=== PATIENT | male | born 1985 | race African-American/Black ===

== ENCOUNTER 2017-01-12 02:51 | Emergency (ER) | payer SELFPAY ==
[2017-01-12 03:53] LABS: APPEARANCE,URINE CLEAR; BILIRUBIN,URINE NEGATIVE (NEGATIVE); GLUCOSE, URINE NEGATIVE (NEGATIVE); KETONES,URINE NEGATIVE (NEGATIVE); LEUKOCYTE ESTERASE,URINE NEGATIVE (NEGATIVE); NITRITE,URINE NEGATIVE (NEGATIVE); PROTEIN,URINE NEGATIVE (NEGATIVE); URINE SPECIFIC GRAVITY 1.026
--- NOTE | 2017-01-12 04:00 | ER Document Report ---
ED Medical Screen (RME) - General Chief Complaint: STD Exposure Stated Complaint: POSSIBLE STD EXPOSURE Time Seen by Provider: 01/12/17 03:31 Mode of Arrival: Ambulatory Information source: Patient Notes: 31-year-old male presents to ED to be checked for Trichomonas. He states that his girlfriend called in from [place] and stated that she had trichomonas and had it for about a year. Patient states patient states he has no symptoms at this time. He came in a year ago and was tested and was treated and he was negative for trichomonas. TRAVEL OUTSIDE OF THE [place] IN LAST 30 DAYS: No Past Medical History Renal/ Medical History: Denies: Hx Peritoneal Dialysis Physical Exam - Vital signs Vitals: Temp Pulse Resp BP Pulse Ox 98.2 F 62 20 138/83 H 99 01/12/17 02:51 01/12/17 02:51 01/12/17 02:51 01/12/17 02:51 01/12/17 02:51 Course - Vital Signs Vital signs: Temp Pulse Resp BP Pulse Ox 98.2 F 62 20 138/83 H 99 01/12/17 02:51 01/12/17 02:51 01/12/17 02:51 01/12/17 02:51 01/12/17 02:51 - Laboratory Laboratory results interpreted by me: 01/12/17 03:30 Urine Urobilinogen 4.0 H Doctor's Discharge - Discharge Clinical Impression: concern for trichomonas, negative test Condition: Stable Disposition: HOME, SELF-CARE Instructions: Family Physicians / Practices Additional Instructions: You came in today to be tested for Trichomonas GC and chlamydia. The trichomonas test was negative. GC and Chlamydia takes about 2-3 hours and you decide you do not want to be treated for them as you are not having symptoms. You state that your girlfriend told you that she had trichomonas and you wanted to be tested for it and it is negative. If your GC or or Chlamydia or come back positive you will be called and you will need to come back in to be treated for those as you have refused treatment for this at this time. FOLLOW-UP CARE: If you have been referred to a physician for follow-up care, call the physician s office for an appointment as you were instructed or within the next two days. If you experience worsening or a significant change in your symptoms, notify the physician immediately or return to the Emergency Department at any time for re-evaluation. Forms: Elevated Blood Pressure, Smoking Cessation Education, Return to Work
[2017-01-12 04:05] LABS: RBC,URINE NONE SEEN /HPF; WBC,URINE NONE SEEN /HPF
--- NOTE | 2017-01-12 04:20 | ER Document Report ---
ED GI/ - General Chief Complaint: STD Exposure Stated Complaint: POSSIBLE STD EXPOSURE Time Seen by Provider: 01/12/17 03:31 Mode of Arrival: Ambulatory Information source: Patient Notes: 31-year-old male presents to ED to be tested for Trichomonas. He states that his girlfriend told that she is positive for trichomonas and that the doctor told her hip she had been positive for a year. He states he came into the emergency room about a year ago and was tested for STDs and was told that he had gonorrhea and was treated. Patient states she has no symptoms at this time. TRAVEL OUTSIDE OF THE [place] IN LAST 30 DAYS: No - HPI Patient complains to provider of: Other - None Onset: Other - No symptoms Quality of pain: No pain Pain Level: Denies Associated symptoms: None Exacerbated by: Denies Relieved by: Denies Similar symptoms previously: Yes Recently seen / treated by doctor: No Past Medical History - General Information source: Patient - Social History Smoking Status: Current Every Day Smoker Cigarette use (# per day): Yes - Half a pack a day Chew tobacco use (# tins/day): No Smoking Education Provided: Yes - Less than 2 minutes Frequency of alcohol use: None Drug Abuse: Marijuana Occupation: [employer] Lives with: Family Family History: Reviewed & Not Pertinent Patient has suicidal ideation: No Patient has homicidal ideation: No - Past Medical History Cardiac Medical History: Reports: None Pulmonary Medical History: Reports: None EENT Medical History: Reports: None Neurological Medical History: Reports: None Endocrine Medical History: Reports: None Renal/ Medical History: Reports: None Malignancy Medical History: Reports None GI Medical History: Reports: None Musculoskeltal Medical History: Reports None Skin Medical History: Reports None Psychiatric Medical History: Reports: None Traumatic Medical History: Reports: None Infectious Medical History: Reports: None Surgical Hx: Negative Review of Systems - Review of Systems Constitutional: No symptoms reported EENT: No symptoms reported Cardiovascular: No symptoms reported Respiratory: No symptoms reported Gastrointestinal: No symptoms reported Genitourinary: No symptoms reported Male Genitourinary: No symptoms reported Musculoskeletal: No symptoms reported Skin: No symptoms reported Hematologic/Lymphatic: No symptoms reported Neurological/Psychological: No symptoms reported Physical Exam - Vital signs Vitals: Temp Pulse Resp BP Pulse Ox 98.2 F 62 20 138/83 H 99 01/12/17 02:51 01/12/17 02:51 01/12/17 02:51 01/12/17 02:51 01/12/17 02:51 Interpretation: Normal - General General appearance: Appears well, Alert - HEENT Head: Normocephalic, Atraumatic Eyes: Normal Pupils: PERRL - Respiratory Respiratory status: No respiratory distress Chest status: Nontender Breath sounds: Normal Chest palpation: Normal - Cardiovascular Rhythm: Regular Heart sounds: Normal auscultation Murmur: No - Abdominal Inspection: Normal Distension: No distension Bowel sounds: Normal Tenderness: Nontender Organomegaly: No organomegaly - Back Back: Normal, Nontender - Extremities General upper extremity: Normal inspection, Nontender, Normal color, Normal ROM , Normal temperature General lower extremity: Normal inspection, Nontender, Normal color, Normal ROM , Normal temperature, Normal weight bearing. No: Joseline's sign - Neurological Neuro grossly intact: Yes Cognition: Normal Orientation: AAOx4 Ariana Coma Scale Eye Opening: Spontaneous Ariana Coma Scale Verbal: Oriented Ariana Coma Scale Motor: Obeys Commands Ariana Coma Scale Total: 15 Speech: Normal Motor strength normal: LUE, RUE, LLE, RLE Sensory: Normal - Psychological Associated symptoms: Normal affect, Normal mood - Skin Skin Temperature: Warm Skin Moisture: Dry Skin Color: Normal Course - Re-evaluation Re-evalutation: 01/12/17 04:19 Call lab and asked them to test the urine for Trichomonas. I got a call back stated that he was negative for trichomonas. Patient was informed that the urine was negative for trichomonas and he stated he did not want to be treated for GC chlamydia as he was having no symptoms at this time please call him if anything comes back positive and he will come back in to be treated. - Vital Signs Vital signs: Temp Pulse Resp BP Pulse Ox 98.2 F 62 20 138/83 H 99 01/12/17 02:51 01/12/17 02:51 01/12/17 02:51 01/12/17 02:51 01/12/17 02:51 - Laboratory Laboratory results interpreted by me: 01/12/17 03:30 Urine Urobilinogen 4.0 H Discharge - Discharge Clinical Impression: concern for trichomonas, negative test Condition: Stable Disposition: HOME, SELF-CARE Instructions: Family Physicians / Practices Additional Instructions: You came in today to be tested for Trichomonas GC and chlamydia. The trichomonas test was negative. GC and Chlamydia takes about 2-3 hours and you decide you do not want to be treated for them as you are not having symptoms. You state that your girlfriend told you that she had trichomonas and you wanted to be tested for it and it is negative. If your GC or or Chlamydia or come back positive you will be called and you will need to come back in to be treated for those as you have refused treatment for this at this time. FOLLOW-UP CARE: If you have been referred to a physician for follow-up care, call the physician s office for an appointment as you were instructed or within the next two days. If you experience worsening or a significant change in your symptoms, notify the physician immediately or return to the Emergency Department at any time for re-evaluation. Forms: Elevated Blood Pressure, Smoking Cessation Education, Return to Work
[2017-01-12 04:29] VITALS: BP 132/82
[2017-01-12 05:19] LABS: CHLAM PCR NOT DETECTED (NOT DETECT)
== END 2017-01-12 04:29 | disposition home or self-care (01) ==
LOC: ER 02:51
DX: Z20.2 Contact with and (suspected) exposure to infections with a predominantly sexual mode of transmission (principal); F17.210 Nicotine dependence, cigarettes, uncomplicated; Z71.6 Tobacco abuse counseling
CPT/HCPCS: 81001; 87491; 87591; 99283

== ENCOUNTER 2017-05-08 02:34 | Emergency (ER) | payer SELFPAY ==
--- NOTE | 2017-05-08 03:40 | ER Document Report ---
ED GI/ - General Chief Complaint: Testicular Pain Stated Complaint: PAIN INNER THIGH AREA Time Seen by Provider: 05/08/17 03:19 Notes: Patient is a 31-year-old male comes emergency department for chief complaint of testicular pain for the past 3 days, he states it is intermittent and sharp, he states he feels like it is mainly at the back of his testicles. He states he cannot feel the exact spot when palpating but it is irritating. He denies trauma, fever, rash, he states he has had only protected sex, he denies discharge, denies flank pain, denies abdominal pain. TRAVEL OUTSIDE OF THE [place] IN LAST 30 DAYS: No - Related Data Allergies/Adverse Reactions: No Known Allergies Allergy (Unverified 05/08/17 02:46) Past Medical History - General Information source: Patient - Social History Smoking Status: Never Smoker Frequency of alcohol use: None Drug Abuse: None Lives with: Family Family History: Reviewed & Not Pertinent Patient has suicidal ideation: No Patient has homicidal ideation: No - Medical History Medical History: Negative Renal/ Medical History: Denies: Hx Peritoneal Dialysis Surgical Hx: Negative - Immunizations Immunizations up to date: Yes Hx Diphtheria, Pertussis, Tetanus Vaccination: Yes Review of Systems - Review of Systems Constitutional: No symptoms reported EENT: No symptoms reported Cardiovascular: No symptoms reported Respiratory: No symptoms reported Gastrointestinal: No symptoms reported Genitourinary: See HPI Male Genitourinary: No symptoms reported Musculoskeletal: No symptoms reported Skin: No symptoms reported Hematologic/Lymphatic: No symptoms reported Neurological/Psychological: No symptoms reported Physical Exam - Vital signs Vitals: Temp Pulse Resp BP Pulse Ox 98.1 F 79 16 137/86 H 99 05/08/17 02:39 05/08/17 02:39 05/08/17 02:39 05/08/17 02:39 05/08/17 02:39 Interpretation: Normal - General General appearance: Appears well, Alert - HEENT Head: Normocephalic, Atraumatic Eyes: Normal Pupils: PERRL - Respiratory Respiratory status: No respiratory distress Chest status: Nontender Breath sounds: Normal Chest palpation: Normal - Cardiovascular Rhythm: Regular Heart sounds: Normal auscultation Murmur: No - Abdominal Inspection: Normal Distension: No distension Bowel sounds: Normal Tenderness: Nontender Organomegaly: No organomegaly - Genitourinary Inspection: Normal. No: Blood at meatus, Penile discharge Tenderness: Nontender, Other - There is minimal inconsistent tenderness near the right epididymis, no swelling, erythema, abnormal heat, or other abnormal finding. No: Lesions, Testicle tender, Epididymis tender Cremasteric reflex: Normal. No: Right reflex absent, Left reflex absent Scrotum: Normal. No: Swelling, Redness, Hot to touch - Back Back: Normal, Nontender - Extremities General upper extremity: Normal inspection, Nontender, Normal color, Normal ROM , Normal temperature General lower extremity: Normal inspection, Nontender, Normal color, Normal ROM , Normal temperature, Normal weight bearing. No: Joseline's sign - Neurological Neuro grossly intact: Yes Cognition: Normal Orientation: AAOx4 Ariana Coma Scale Eye Opening: Spontaneous Ariana Coma Scale Verbal: Oriented Ariana Coma Scale Motor: Obeys Commands [place] Coma Scale Total: 15 Speech: Normal Motor strength normal: LUE, RUE, LLE, RLE Sensory: Normal - Psychological Associated symptoms: Normal affect, Normal mood - Skin Skin Temperature: Warm Skin Moisture: Dry Skin Color: Normal Course - Re-evaluation Re-evalutation: Patient well-appearing on exam. No swelling of the scrotum, no rash, no discharge, no concerning symptoms reported. Minimal tenderness near the epididymis on the right. No significant areas of tenderness noted. Ultrasound showing no abnormalities. Urine does not show white blood cells or evidence of infection. Patient denies unprotected sex. Patient will be treated with anti- inflammatory, supportive underwear, discussed antibiotics, after discussion this was declined. Discussed follow-up with primary care and return precautions. Patient states understanding and agreement. - Vital Signs Vital signs: Temp Pulse Resp BP Pulse Ox 98.2 F 80 16 132/84 H 99 05/08/17 06:28 05/08/17 06:28 05/08/17 06:28 05/08/17 06:28 05/08/17 06:28 Discharge - Discharge Clinical Impression: Testicular pain Condition: Stable Disposition: HOME, SELF-CARE Additional Instructions: Your ultrasound and lab work do not show any concerning abnormality's. Take the anti-inflammatory as prescribed, wear supportive underwear. Follow-up with primary care. Please be reevaluated if you develop any concerning or worsening symptoms including rash, discharge, swelling, or any other concerning symptoms. Prescriptions: Naproxen 500 mg PO BID #14 tablet Forms: Return to Work
[2017-05-08 03:58] LABS: AMORPHOUS SEDIMENT,URINE TRACE /HPF; APPEARANCE,URINE CLEAR; BILIRUBIN,URINE NEGATIVE (NEGATIVE); GLUCOSE, URINE NEGATIVE (NEGATIVE); KETONES,URINE NEGATIVE (NEGATIVE); LEUKOCYTE ESTERASE,URINE NEGATIVE (NEGATIVE); NITRITE,URINE NEGATIVE (NEGATIVE); PROTEIN,URINE NEGATIVE (NEGATIVE); URINE SPECIFIC GRAVITY 1.029; UROBILINOGEN,URINE NEGATIVE mg/dL (<2.0)
--- NOTE | 2017-05-08 05:26 | RADIOLOGY REPORT (SQ) ---
EXAM DESCRIPTION: U/S SCROTUM W/DOPPLER COMPLETED DATE/TIME: 05/08/2017 5:17 am REASON FOR STUDY: scrotum pain COMPARISON: None. TECHNIQUE: Static and realtime rivera scale imaging of the scrotum and testes. Selected color Doppler and spectral images recorded to document blood flow. LIMITATIONS: None. FINDINGS: RIGHT: TESTICLE: Normal size. Normal echotexture. Normal blood flow. No mass. EPIDIDYMIS: Normal. HYDROCELE OR VARICOCELE: No. HERNIA OR EXTRA-TESTICULAR MASS: No. OTHER: No other significant finding. LEFT: TESTICLE: Normal size. Normal echotexture. Normal blood flow. No mass. EPIDIDYMIS: Normal. HYDROCELE OR VARICOCELE: No. HERNIA OR EXTRA-TESTICULAR MASS: No. OTHER: No other significant finding. IMPRESSION: NORMAL SCROTAL ULTRASOUND. NO EVIDENCE OF TESTICULAR MASS OR TORSION. TECHNICAL DOCUMENTATION: JOB ID: [id number] [employer]- All Rights Reserved
[2017-05-08] MEDS ORDERED: NAPROXEN 250 MG TABLET PO ONE (06:14)
[2017-05-08 06:29] VITALS: BP 132/84
== END 2017-05-08 06:34 | disposition home or self-care (01) ==
LOC: ER 02:34
DX: N50.812 Left testicular pain (principal); N50.811 Right testicular pain
CPT/HCPCS: 76870; 81001; 93976; 99284